=== PATIENT | male | born 1945 | race Caucasian/White ===

== ENCOUNTER 2017-05-08 16:32 | Inpatient (IN) | payer BC, MEDICARE ==
--- NOTE | 2017-05-08 17:19 | ED ---
General Adult HPI - General Chief complaint: Eye Problems Stated complaint: Double Vision Time Seen by Provider: 05/08/17 17:04 Source: patient, RN notes reviewed Mode of arrival: ambulatory Limitations: no limitations - History of Present Illness Initial comments: This a 71-year-old male presents emergency Department with chief complaint of blurred vision. Patient states started approximately 2 hours ago while walking [place] the mall. Patient states he was not exerting himself. Patient states that his never had issues a tetanus the past. Patient states he sees double vision in the horizontal field. Patient states that his symptoms improve if he looks down or up but is worse when he looks right better when he looks left. Patient denies any focal weakness. Denies any extremity weakness, and facial drooping. Denies any confusion. Patient states he had a headache for less than 30 minutes which has resolved. Patient states he had very minimal nausea but denies any chest pain or shortness of breath. Patient states that he has a history of hyperlipidemia on lovastatin and currently also taking vitamin D. Patient has not seen an brush cleaner in a few years. - Related Data Home Medications Medication Instructions Recorded Confirmed Cholecalciferol [Vitamin D3] 2,000 unit PO DAILY 05/08/17 05/08/17 Lovastatin [Mevacor] 80 mg PO HS 05/08/17 05/08/17 Allergies Allergy/AdvReac Type Severity Reaction Status Date / Time No Known Allergies Allergy Verified 05/08/17 17:06 Review of Systems ROS Statement: Those systems with pertinent positive or pertinent negative responses have been documented in the HPI. ROS Other: All systems not noted in ROS Statement are negative. Past Medical History Past Medical History: Hypertension History of Any Multi-Drug Resistant Organisms: None Reported Past Surgical History: Cholecystectomy Past Psychological History: No Psychological Hx Reported Smoking Status: Never smoker Past Alcohol Use History: Daily Past Drug Use History: None Reported General Exam Limitations: no limitations General appearance: alert, in no apparent distress Head exam: Present: atraumatic, normocephalic, normal inspection Eye exam: Present: normal appearance, PERRL, EOMI. Absent: scleral icterus, conjunctival injection, periorbital swelling Expanded Eyelids: Normal Inspection: Bilateral Pupils: Regular, Round: Bilateral Sclera/Conjunctival: Normal Inspection: Bilateral Anterior chamber: Normal Inspection: Bilateral ENT exam: Present: normal exam, normal oropharynx, mucous membranes moist, TM's normal bilaterally, normal external ear exam Neck exam: Present: normal inspection, full ROM. Absent: tenderness, meningismus, lymphadenopathy Respiratory exam: Present: normal lung sounds bilaterally. Absent: respiratory distress, wheezes, rales, rhonchi, stridor Cardiovascular Exam: Present: regular rate, normal rhythm, normal heart sounds. Absent: systolic murmur, diastolic murmur, rubs, gallop, clicks Extremities exam: Present: normal inspection, full ROM, normal capillary refill , other (Full strength upper and lower extremity equal bilaterally 5/5). Absent : tenderness, pedal edema, joint swelling, calf tenderness Back exam: Present: normal inspection, full ROM. Absent: tenderness Neurological exam: Present: alert, oriented X3, CN II-XII intact, reflexes normal, other (Finger to nose intact bilaterally without over shooting, GCS of 15, NIH scale 0). Absent: motor sensory deficit Skin exam: Present: warm, dry, intact, normal color. Absent: rash Course Vital Signs 05/08/17 16:56 Temperature 97.8 F Pulse Rate 60 Respiratory 18 Rate Blood Pressure 155/84 O2 Sat by Pulse 98 Oximetry EKG Findings - EKG Comments: EKG Findings:: EKG performed at 18:02 sinus bradycardia with a rate of 49. NE interval 184 QRS duration 90 QT/QTc 442/[address] elevation or depression Medical Decision Making - Lab Data Result diagrams: 05/08/17 17:40 05/08/17 17:40 Lab Results 05/08/17 05/08/17 05/08/17 Range/Units 17:40 17:40 17:40 WBC 8.9 (3.8-10.6) k/uL RBC 4.28 L (4.30-5.90) m/uL Hgb 13.8 (13.0-17.5) gm/dL Hct 40.4 (39.0-53.0) % MCV 94.4 (80.0-100.0) fL MCH 32.3 (25.0-35.0) pg MCHC 34.2 (31.0-37.0) g/dL RDW 13.6 (11.5-15.5) % Plt Count 219 (150-450) k/uL Neutrophils % 71 % Lymphocytes % 17 % Monocytes % 6 % Eosinophils % 3 % Basophils % 1 % Neutrophils # 6.4 (1.3-7.7) k/uL Lymphocytes # 1.6 (1.0-4.8) k/uL Monocytes # 0.6 (0-1.0) k/uL Eosinophils # 0.2 (0-0.7) k/uL Basophils # 0.1 (0-0.2) k/uL Sodium 141 (137-145) mmol/L Potassium 4.0 (3.5-5.1) mmol/L Chloride 107 (98-107) mmol/L Carbon Dioxide 25 (22-30) mmol/L Anion Gap 9 mmol/L BUN 16 (9-20) mg/dL Creatinine 0.94 (0.66-1.25) mg/dL Est GFR (MDRD) Af Amer >60 (>60 ml/min/1.73 sqM) Est GFR (MDRD) Non-Af >60 (>60 ml/min/1.73 sqM) Glucose 91 (74-99) mg/dL Calcium 9.3 (8.4-10.2) mg/dL Total Bilirubin 0.5 (0.2-1.3) mg/dL AST 26 (17-59) U/L ALT 23 (21-72) U/L Alkaline Phosphatase 67 (38-126) U/L Total Creatine Kinase 75 (55-170) U/L CK-MB (CK-2) 1.0 (0.0-2.4) ng/mL CK-MB (CK-2) Rel Index 1.3 Troponin I <0.012 (0.000-0.034) ng/mL Total Protein 7.3 (6.3-8.2) g/dL Albumin 4.1 (3.5-5.0) g/dL Disposition Clinical Impression: Visual changes, TIA (transient ischemic attack) Disposition: ADMITTED IP TO THIS HOSP Condition: Fair Referrals: Pito Hinkle DO [Primary Care Provider] - 1-2 days
[2017-05-08 17:52] LABS: Basophils # (A) 0.1 k/uL (0-0.2); Basophils % (A) 1 %; CH 32.1; CHCM 34.1; Eosinophils # (A) 0.2 k/uL (0-0.7); Eosinophils % (A) 3 %; HCT 40.4 % (39.0-53.0); HDW 2.32; HGB 13.8 gm/dL (13.0-17.5); Luc # (Auto) 0.16; Luc % (Auto) 2; Lymphocytes # (A) 1.6 k/uL (1.0-4.8); Lymphocytes % (A) 17 %; MCH 32.3 pg (25.0-35.0); MCHC 34.2 g/dL (31.0-37.0); MCV 94.4 fL (80.0-100.0); Mean Platelet Volume 8.4; Monocytes # (A) 0.6 k/uL (0-1.0); Monocytes % (A) 6 %; Neutrophils # (A) 6.4 k/uL (1.3-7.7); Neutrophils % (A) 71 %; RBC 4.28 m/uL (4.30-5.90); RDW 13.6 % (11.5-15.5); WBC 8.9 k/uL (3.8-10.6); WBC (Perox) 8.32
[2017-05-08 18:06] LABS: ALT 23 U/L (21-72); AST 26 U/L (17-59); Alkaline Phosphatase 67 U/L (38-126); Anion Gap 9 mmol/L; Blood Urea Nitrogen 16 mg/dL (9-20); Calcium 9.3 mg/dL (8.4-10.2); Carbon Dioxide 25 mmol/L (22-30); Chloride 107 mmol/L (98-107); Glucose 91 mg/dL (74-99); Non-African American GFR(MDRD) >60 (>60 ml/min/1.73 sqM); Sodium 141 mmol/L (137-145); Total Bilirubin 0.5 mg/dL (0.2-1.3); Total Protein 7.3 g/dL (6.3-8.2)
[2017-05-08 18:10] LABS: Partial Thromboplastin Time 24.7 sec (22.0-30.0)
[2017-05-08 18:17] LABS: Creatine Kinase 75 U/L (55-170)
[2017-05-08 18:30] LABS: Troponin I <0.012 ng/mL (0.000-0.034)
--- NOTE | 2017-05-08 18:38 | CT ---
Exam: CT HEAD Without Contrast INDICATION: Blurred vision TECHNIQUE: Multiple, contiguous 3 mm axial cuts of the brain are obtained from the posterior fossa to the cranial vault. Sagittal and coronal reformatted images provided. No IV contrast is administered. This CT exam was performed using one or more of the following dose reduction techniques: automated exposure control, adjustment of the mA and/or kV according to patient size, and/or use of iterative reconstruction technique. CTDI 59.43, DLP 1147.75 COMPARISON: CT head 12/11/15 FINDINGS: No acute intracranial hemorrhage or midline shift or mass effect. No acute cortical infarct. Prominent frontal convexity CSF spaces again noted stable related to component of underlying mild generalized atrophy and frontal atrophy. 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 Ventricular calibers and cisternal calibers appear within normal limits for age and stable since prior exam. Cochran-white differentiation is maintained. Left maxillary sinus 1.8 cm retention cyst stable. Remaining paranasal sinuses and mastoid air cells are clear. No skull fracture. IMPRESSION: 1. No acute intracranial hemorrhage or acute intracranial process. Stable CT of the head when compared to prior exam of 12/11/15. 2. Some mild prominence of the frontal convexity CSF spaces again noted likely related to component of frontal atrophy. 3. 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 4. Stable 1.5 cm retention cyst in the left maxillary sinus.
--- NOTE | 2017-05-08 18:40 | XR ---
Exam: FILM CXR Chest PA and lateral views INDICATION: Chest pain COMPARISON: None FINDINGS: The cardiomediastinal silhouette is within normal limits. Lungs are clear. No pleural effusions. Mild anterior chronic wedging from T6-T10 vertebral bodies with a kyphotic curvature of the thoracic spine. There is mild endplate degenerative osteophyte formation mid thoracic spine and mild to moderate degree lower thoracic spine.. No acute osseous abnormality. IMPRESSION: No acute cardiopulmonary disease. Lungs are clear. Heart size normal.
[2017-05-08] MEDS ORDERED: ASPIRIN 325 MG TAB PO STA (18:56)
[2017-05-08 19:05] LABS: Prothrombin Time 10.5 sec (9.0-12.0)
[2017-05-08 19:05] LABS: Appearance,Urine Clear (Clear); Bilirubin,Urine Negative (Negative); Glucose,Urine (UA) Negative (Negative); Ketones,Urine 1+ (Negative); Leukocyte Esterase,Urine Negative (Negative); Mucus,Urine Rare /hpf; Nitrite,Urine Negative (Negative); PH, Urine 5.5 (5.0-8.0); Particle Count 925; Protein,Urine Negative (Negative); RBC,Urine <1 /hpf (0-5); Specific Gravity,Urine 1.018 (1.001-1.035); UA Billing (MACRO vs. MICRO) MICRO; Urobilinogen,Urine <2.0 mg/dL (<2.0); WBC,Urine <1 /hpf (0-5)
[2017-05-08 20:42] VITALS: BMI 27.4
--- NOTE | 2017-05-08 21:42 | US ---
EXAMINATION TYPE: US carotid duplex BILAT DATE OF EXAM: 05/08/2017 COMPARISON: NONE CLINICAL HISTORY: Stenosis. EXAM MEASUREMENTS: RIGHT: Peak Systolic Velocity (PSV) cm/sec ----- Right CCA: 101.6 ----- Right ICA: 72.5 ----- Right ECA: 119.4 ICA/CCA ratio: 0.7 RIGHT: End Diastole cm/sec ----- Right CCA: 22.5 ----- Right ICA: 17.6 ----- Right ECA: 11.1 LEFT: Peak Systolic Velocity (PSV) cm/sec ----- Left CCA: 88.7 ----- Left ICA: 80.6 ----- Left ECA: 77.4 ICA/CCA ratio: 0.9 LEFT: End Diastole cm/sec ----- Left CCA: 17.6 ----- Left ICA: 25.7 ----- Left ECA: 7.9 VERTEBRALS (direction of flow): Right Vertebral: Antegrade Left Vertebral: Antegrade IMPRESSION: 1. Negative for flow limiting carotid stenosis. 2. Mild plaque visualized bilaterally. 3. Elevated velocities visualized within the proximal and mid right CCA noted.
[2017-05-09 03:03] LABS: Cholesterol 164 mg/dL (<200); HDL Cholesterol 67 mg/dL (40-60); Triglycerides 124 mg/dL (<150)
[2017-05-09 04:09] VITALS: RESP 16
--- NOTE | 2017-05-09 07:51 | MR ---
EXAMINATION TYPE: MR brain wo con DATE OF EXAM: 05/09/2017 COMPARISON: CT brain from yesterday HISTORY: double vision/TIA. Sudden onset vision changes on admission one day earlier. TECHNIQUE: Multiplanar, multisequence imaging of the brain and brainstem is performed without IV cont rast. FINDINGS: Diffusion weighted images demonstrate no evidence of a recent infarct or other diffusion abnormality. There is prominent extra-axial CSF particularly over frontal and superior occipital lobes likely refl ecting atrophy slightly more prominent over frontal lobes. Tiny lacunar infarct deep right frontal w antonietta matter near level of basal ganglia on axial image 16 is redemonstrated. Midline structures demonstrate normal morphology. The craniocervical junction appears within normal limits. Normal vascular flow voids are present. The visualized sinuses are clear and the globes are i ntact. Distortion at level of inferior maxillary sinuses is noted. IMPRESSION: 1. No evidence of a recent infarct. 2. Mild to moderate diffuse cerebral atrophy slightly more prominent over bilateral frontal lobes and old tiny right frontal lobe lacunar infarct all redemonstrated.
[2017-05-09] MEDS ORDERED: ASPIRIN 325 MG TAB PO SCH (09:00)
[2017-05-09] MEDS ORDERED: ENOXAPARIN 40 MG/0.4 ML SYRINGE SQ SCH (09:00)
[2017-05-09 11:31] VITALS: BP 137/71; PULSE 52; TEMP 97.6
[2017-05-09] MEDS ORDERED: CHOLECALCIFEROL 1,000 UNIT TAB PO SCH (12:00)
--- NOTE | 2017-05-09 14:28 | P.HPIM ---
History of Present Illness H&P Date: 05/08/17 Chief Complaint: Double vision This is a very pleasant 71-year-old patient of Dr. Hinkle I saw her yesterday on 05/08/2017. Patient chronic stable medical conditions include hyperlipidemia hypertension. Patient was walking around when he noticed he started seeing double. Does not headache no change in speech, no change in swallowing, no weakness in arm or leg. This lasted for maybe about an hour. Then resolved. Patient presents to the local urgent care for many was transferred to the ER. No prior history of stroke or TIAs. Significant past medical history: Hypertension, hyperlipidemia Review of Systems GEN.: None EYES: As above HEENT: None NECK: None RESPIRATORY: None CARDIOVASCULAR: None GASTROINTESTINAL: None GENITOURINARY: None MUSCULOSKELETAL: None LYMPHATICS: None HEMATOLOGICAL: None PSYCHIATRY: None NEUROLOGICAL: As above Past Medical History Past Medical History: Hyperlipidemia, Hypertension History of Any Multi-Drug Resistant Organisms: None Reported Past Surgical History: Cholecystectomy Past Anesthesia/Blood Transfusion Reactions: No Reported Reaction Past Psychological History: No Psychological Hx Reported Additional Psychological History / Comment(s): Patient is retired, lives alone used to work for [employer]. No smoking or alcohol Smoking Status: Former smoker Past Alcohol Use History: Daily Past Drug Use History: None Reported Medications and Allergies Home Medications Medication Instructions Recorded Confirmed Type Cholecalciferol [Vitamin D3] 2,000 unit PO DAILY 05/08/17 05/08/17 History Lovastatin [Mevacor] 80 mg PO HS 05/08/17 05/08/17 History Allergies Allergy/AdvReac Type Severity Reaction Status Date / Time No Known Allergies Allergy Verified 05/08/17 17:06 Physical Exam VITAL SIGNS: Temperature 97.8, pulse 80, respiration 18, blood pressure 155/84, pulse ox 98% room air upon presentation GENERAL: Average built, sitting up, comfortable. EYES: Pupils equal. Conjunctiva normal. HEENT: External appearance of nose and ears normal, oral cavity grossly normal. NECK: JVD not raised; masses not palpable. HEART: First and second heart sounds are normal; no edema. LUNGS: Respiratory rate normal; clear to auscultation. ABDOMEN: Soft, nontender, liver spleen not palpable, no masses palpable. LYMPHATICS: No lymph nodes palpable in the axilla and neck. PSYCH: Alert and oriented x3; mood and affect normal. NEUROLOGICAL: Cranial nerves grossly intact; no facial asymmetry, power and sensation grossly intact. Results CBC & Chem 7: 05/08/17 17:40 05/08/17 17:40 Labs: White count 8.9, hemoglobin 13.8, potassium 4.0 Computed tomography scan of the brain shows chronic changes including old lacunar infarct in the right frontal lobe Carotid Doppler- No Critical stenosis Assessment and Plan Plan: Assessment: -Possible TIA, in the brainstem area in a right-handed patient, likely ischemic , risk factors including hyperlipidemia and hypertension -Essential hypertension -Hyperlipidemia Plan: Patient on aspirin, Mevacor continued,. MRI of the brain was ordered. Neurology was consulted. Neurochecks are in place. Care was discussed with the patient.
--- NOTE | 2017-05-09 18:22 | P.DS ---
Providers Date of admission: 05/08/17 19:07 Expected date of discharge: 05/09/17 Attending physician: Amol Lima Consults: 05/08/17 19:00 Consult Physician Stat Consulting Provider: Hollis Hobson Consult Reason/Comments: tia/visual changes Do you want consulting provider notified?: Yes Primary care physician: Pito Hinkle [facility] Course: This is a very pleasant 71-year-old patient of Dr. Hinkle I saw her yesterday on 05/08/2017. Patient chronic stable medical conditions include hyperlipidemia hypertension. Patient was walking around when he noticed he started seeing double. Does not headache no change in speech, no change in swallowing, no weakness in arm or leg. This lasted for maybe about an hour. Then resolved. Patient presents to the local urgent care for many was transferred to the ER. No prior history of stroke or TIAs. Patient had no further episodes. He remained neurologically intact. Dr. Hobson spoke to the nurse on the phone and okayed patient to be discharged as patient very keen to go home. Care was discussed in detail with the patient and questions were answered. Discharge planning more than 35 minutes On examination: No neurological deficit Investigations: Patient had a computed tomography scan of the brain, MRI of the brain, carotid Doppler, all were unremarkable. Patient's telemetry was unremarkable. LDL came back at 72 Patient Condition at Discharge: Fair Plan - Discharge Summary New Discharge Prescriptions: New Aspirin 81 mg PO DAILY #30 chewable Continue Lovastatin [Mevacor] 80 mg PO HS Cholecalciferol [Vitamin D3] 2,000 unit PO DAILY Discharge Medication List Cholecalciferol [Vitamin D3] 2,000 unit PO DAILY 05/08/17 [History] Lovastatin [Mevacor] 80 mg PO HS 05/08/17 [History] Aspirin 81 mg PO DAILY #30 chewable 05/09/17 [Rx] Follow up Appointment(s)/Referral(s): yair rodriguez [Other] - 1 Week (Optometry) Pito Hinkle DO [Primary Care Provider] - 05/22/17 9:00 am (EXISTING APPOINTMENT) Hollsi Hobson MD [STAFF PHYSICIAN] - 1 Week (OFFICES WILL CALL WITH AN APPOINTMENT) Patient Instructions/Handouts: Transient Ischemic Attack (DC), Diplopia (DC) Activity/Diet/Wound Care/Special Instructions: Heart healthy diet OK with Dr Hobson to follow up out patient please follow up with personal opthomologist Discharge Disposition: HOME SELF-CARE
[2017-05-09] MEDS ORDERED: ATORVASTATIN 20 MG TAB PO SCH (21:00)
--- NOTE | 2017-05-09 23:49 | CONS ---
DATE OF CONSULTATION: 05/09/2017 HISTORY: The patient is a 71-year-old myopic male who presented to the emergency room on 05/08/17 after walking in the mall locally. The patient states that he was there to get some light exercise and was not exerting himself significantly. He states that approximately at 3 p.m. while walking he noticed double vision in a vertical disorientation, where one object was vertically stacked on top of the second object. The patient stated that when he looked inferiorly down towards the floor, his double vision seemed to have diminished. It was not accompanied by any blurred vision. The diplopia that the patient experienced continued and then lightened up slowly, and by 7 to 8 p.m. it was completely resolved. He denies any other neurological signs or symptoms and is currently resting comfortably in his bed. EXAM: Visual acuity with correction measured 20/20 bilaterally. The pupils were equal and reactive to light. Extraocular movements were full in all gaze positions. Evaluation of muscle balance did not reveal the presence of any imbalances in all gaze positions. I could not elicit any diplopia currently. On penlight exam, the anterior segments were quiet bilaterally. There was no evidence of inflammation or any significant pathology. IMPRESSION: Diplopia, temporary, now resolved. It is difficult to elicit a possible cause for this patient's diplopia, as he no longer exhibits symptoms and is completely "orthotropic" in his presentation. A vertical disorientation is more unusual than a horizontal diplopia; however, it can occur due to multiple mechanisms. As there is no current pathology, however, it is impossible to say what might be the source. The patient had an MRI and CT scan, both of which were negative without the appearance of any infarct or hemorrhage. Because of his lack of symptoms at this time, further intervention on my behalf is not indicated. I asked that he follow up in my office upon discharge from the hospital. Thank you very much for this consultation. SHAYNE
== END 2017-05-09 14:06 | disposition home or self-care (01) | DRG 69 ==
LOC: EC 16:32 → 6SEL 19:07
PROVIDERS: ADMIT Hospitalist; ATTEND Hospitalist
DX: G45.9 Transient cerebral ischemic attack, unspecified (principal); I10 Essential (primary) hypertension; H53.2 Diplopia; E78.5 Hyperlipidemia, unspecified; R29.700 NIHSS score 0; R40.2410 Glasgow coma scale score 13-15, unspecified time; R00.1 Bradycardia, unspecified; R51 Headache; Z87.891 Personal history of nicotine dependence; Z79.899 Other long term (current) drug therapy; Z90.49 Acquired absence of other specified parts of digestive tract
CPT/HCPCS: 36415; 70450; 70551; 71020; 80053; 80061; 81001; 82550; 82553; 84484; 85025; 85610; 85730; 93005; 93880; 99285

== ENCOUNTER → 2017-06-26 | Outpatient (CLI) | payer MEDICARE ==
[2017-06-26 10:32] LABS: Blood Urea Nitrogen 15 mg/dL (9-20); Non-African American GFR(MDRD) >60 (>60 ml/min/1.73 sqM)
== END | disposition home or self-care (01) ==
LOC: LABWHC1 09:14
PROVIDERS: ATTEND Psychiatry & Neurology Pain Medicine
DX: R55 Syncope and collapse (principal)
CPT/HCPCS: 36415; 82565; 84520

== ENCOUNTER → 2017-07-07 | Outpatient (CLI) | payer MEDICARE | LOC: RADMRIMAIN 17:38 | PROVIDERS: ATTEND Psychiatry & Neurology Pain Medicine | DX: Z53.9 Procedure and treatment not carried out, unspecified reason (principal) ==

== ENCOUNTER → 2017-07-10 | Day surgery (SDC) | payer MEDICARE ==
[2017-07-06 15:42] VITALS: BMI 27.6
[~2017-07-10] MED LIST: SODIUM CHLORIDE 0.9% 1,000 ML IV SCH
[2017-07-10 10:41] VITALS: RESP 18; TEMP 98
[2017-07-10 12:00] VITALS: BP 134/82; PULSE 66
--- NOTE | 2017-07-10 13:32 | P.PCN ---
Preoperative Diagnosis: Twelve-lead ECG Sinus rhythm 52 beats a minute narrow QRS normal ST segments no delta waves no epsilon waves normal CA interval normal QT interval narrow QRS Tilt table test Baseline blood pressure 146/75 mmHg, a slight heart rate 54 beats a minute patient was tilted upright at 70 per protocol. There was no change in his heart rate blood pressure and he remained asymptomatic through the procedure Impression Normal heart rate and blood pressure response to upright tilting Postoperative Diagnosis: Procedure(s) Performed: Implants: Anesthesia: none Condition: stable Disposition: same day Indications for Procedure: Operative Findings: Description of Procedure:
== END ==
LOC: CATHEP 10:22
PROVIDERS: ATTEND Internal Medicine Clinical Cardiac Electrophysiology
DX: R42 Dizziness and giddiness (principal); R55 Syncope and collapse
CPT/HCPCS: 93660